=== PATIENT | male | born 1995 | race Caucasian/White ===

== ENCOUNTER 2022-04-14 20:21 | Emergency (ER) | payer OTHER ==
[~2022-04-14] VITALS: Ht 175.3 cm; Wt 95.2 kg
[2022-04-14] MEDS ORDERED: MELOXICAM15 MG PO (22:20)
[2022-04-14] MEDS ORDERED: CYCLOBENZAPRINE10 MG PO (22:20)
== END 2022-04-14 23:00 | disposition home or self-care (01) ==
LOC: ED 20:21
DX: S29.012A Strain of muscle and tendon of back wall of thorax, initial encounter (principal); V43.52XA Car driver injured in collision with other type car in traffic accident, initial encounter
CPT/HCPCS: 72070; 96374; 99283-25; J1885

== ENCOUNTER 2024-11-02 04:14 | Emergency (ER) | payer BC ==
[~2024-11-02] VITALS: Ht 175.3 cm; Wt 98.0 kg
[2024-11-02 04:39] VITALS: BP 137/85
== END 2024-11-02 04:38 | disposition other institution, planned readmission (95) ==
LOC: ED 04:14
DX: F10.929 Alcohol use, unspecified with intoxication, unspecified (principal)
CPT/HCPCS: 36415; 99284; G0480